=== PATIENT | male | born 1970 | race Asian ===

== ENCOUNTER 2020-09-19 11:08 | Emergency (ER) | payer MEDICAID ==
[~2020-09-19] VITALS: Ht 170.2 cm; Wt 81.6 kg
[2020-09-19 13:53] LABS: BASOPHILS % (AUTO) 0.9 % (0.0-2.0); EOSINOPHILS % (AUTO) 4.2 % (0.0-6.0); HEMATOCRIT 54 % (39-51); HEMOGLOBIN 17.2 g/dL (13.5-17.5); LYMPHOCYTES # (AUTO) 1.5 /CMM (0.8-4.8); LYMPHOCYTES % (AUTO) 27.7 % (20.0-44.0); MEAN CORPUSCULAR HGB CONC 32 g/dl (31.0-36.0); MEAN CORPUSCULAR VOLUME 95 fL (80-96); MONOCYTES # (AUTO) 0.4 /CMM (0.1-1.30); MONOCYTES % (AUTO) 7.4 % (2.0-12.0); NEUTROPHILS # (AUTO) 3.2 /CMM (1.8-8.9); NEUTROPHILS % (AUTO) 59.8 % (43.0-81.0); PLATELET COUNT (AUTO) 165 /CMM (150-450); RED BLOOD CELL COUNT(AUTO) 5.68 MIL/uL (4.5-6.0); WHITE BLOOD COUNT (AUTO) 5.4 K/uL (4.3-11.0)
[2020-09-19 14:50] LABS: ALANINE AMINOTRANSFERASE 14 U/L (12-78); ALKALINE PHOSPHATASE 53 U/L (46-116); ASPARTATE AMINOTRANSFERASE 25 U/L (15-37); BILIRUBIN,DIRECT 0.1 mg/dL (0.0-0.2); BILIRUBIN,TOTAL 0.8 mg/dL (0.2-1.0); CALCIUM, SERUM 9.3 mg/dL (8.5-10.1); CARBON DIOXIDE 23 mmol/L (21-32); CHLORIDE 103 mmol/L (98-107); CREATININE 0.9 mg/dL (0.6-1.3); GLUCOSE 95 mg/dL (74-106); POTASSIUM 3.9 mmol/L (3.5-5.1); SODIUM SERUM 140 mmol/L (136-145); TOTAL PROTEIN, SERUM 8.4 g/dL (6.4-8.2); UREA NITROGEN, BLOOD 10 mg/dL (7-18)
--- NOTE | 2020-09-19 15:00 | NUR ---
Patient came in to the er c/o elevated blood pressure and burning chest pain since this morninig. On room air, breathing evenly and unlabored. Connected to the monitor and pulse ox. Kept comfortable, will continue to monitor accordingly.
[2020-09-19 19:14] VITALS: BP 139/81
--- NOTE | 2020-09-19 19:14 | NUR ---
Patient discharged to home in stable condition. Written and verbal after care instructions given. Patient verbalizes understanding of instruction.
== END 2020-09-19 19:14 | disposition home or self-care (01) ==
LOC: ER 11:13
DX: I10 Essential (primary) hypertension (principal)
CPT/HCPCS: 36415; 71045-TC; 80048-TC; 80076-TC; 83690-TC; 84484-TC; 85025-TC